=== PATIENT | female | born 1985 | race Caucasian/White ===

== ENCOUNTER 2016-08-08 08:43 | Day surgery (SDC) | payer BC, MEDICAID ==
[2016-08-08] MEDS ORDERED: Lactated Ringers 1,000 ML IV SCH (09:00)
[2016-08-08] MEDS ORDERED: Ketorolac 30 MG/ML SDV IVPUSH ONE (11:00)
[2016-08-08] MEDS ORDERED: Propofol 200 MG/20 ML SDV IV ONE (11:00)
[2016-08-08 12:05] VITALS: BP 115/70
--- NOTE | 2016-08-08 15:07 | OR ---
DATE OF OPERATION: 08/08/2016 SURGEON: Jas Fuller MD PROCEDURE PERFORMED: Colonoscopy with cold forceps biopsy. PREOPERATIVE DIAGNOSIS: Bleeding per rectum. POSTOPERATIVE DIAGNOSIS: Hyperplastic polyps of the rectum and internal hemorrhoids. INDICATIONS FOR PROCEDURE: This is a 30-year-old white female, who is referred with a complaint of bleeding per rectum. She was offered and accepted colonoscopy. DESCRIPTION OF OPERATION: After an excellent IV sedation was administered, digital rectal exam was performed. No marked abnormality was noted. The flexible colonoscope was inserted and advanced to the cecum without difficulty. The following findings were noted. Ascending colon, unremarkable. Transverse colon, unremarkable. Descending colon, unremarkable. Sigmoid, unremarkable. Rectum, small hyperplastic-appearing lesion, biopsied with cold biopsy forceps and sent for permanent, and on retroflexing the scope, the patient has evidence of internal hemorrhoids, which appears to be the cause of her bleeding. The patient was taken to recovery room in good condition. /[id number] DAHIANA/BLANE
== END 2016-08-08 12:25 | disposition home or self-care (01) ==
LOC: FB.SDS 08:43
PROVIDERS: ATTEND Surgery
PROC: 0DBN8ZX Excision of Sigmoid Colon, Via Natural or Artificial Opening Endoscopic, Diagnostic (ICD-10-PCS; principal; 2016-08-08)
DX: D36.7 Benign neoplasm of other specified sites (principal); Z79.899 Other long term (current) drug therapy; Z88.1 Allergy status to other antibiotic agents; K21.9 Gastro-esophageal reflux disease without esophagitis; E66.01 Morbid (severe) obesity due to excess calories; E28.2 Polycystic ovarian syndrome; F40.01 Agoraphobia with panic disorder; Z68.35 Body mass index [BMI] 35.0-35.9, adult; F17.210 Nicotine dependence, cigarettes, uncomplicated
CPT/HCPCS: 45380; 81025; J1885; J2704; J7120; 88305